=== PATIENT | male | born 1955 | race Caucasian/White ===

== ENCOUNTER 2021-05-17 20:49 | Inpatient (IN) | payer OTHER ==
[~2021-05-17] VITALS: Ht 182.9 cm; Wt 99.9 kg
[2021-05-18 00:35] LABS: Basophils # (auto) 0 10 ^3/uL (0-0.2); Basophils % (auto) 0.1 % (0.0-2.0); Eosinophils # (auto) 0 10 ^3/uL (0-0.8); Hematocrit 44.8 % (41.0-53.0); Hemoglobin 14.9 g/dL (13.5-17.5); Lymphocytes # (auto) 0.8 10 ^3/uL (0.4-5.4); Lymphocytes % (auto) 9.9 % (10.0-50.0); Mean Corpuscular Hemoglobin 31.2 pg (28.0-32.0); Mean Corpuscular Hgb Conc. 33.3 g/dL (32.0-36.0); Mean Corpuscular Volume 93.7 fL (80.0-100.0); Monocytes # (auto) 0.3 10 ^3/uL (0-1.3); Monocytes % (auto) 3.3 % (0.0-12.0); Neutrophils # (auto) 7.4 10 ^3/uL (1.6-8.6); Neutrophils % (auto) 86.7 % (37.0-80.0); Nucleated Red Blood Cells % 0.1 %; Red Blood Cells 4.78 10^6/uL (4.5-5.90); Red Cell Distribution Width 15.4 % (11.8-14.3); White Blood Cell 8.6 10^3/uL (4.4-10.8)
[2021-05-18 00:39] LABS: Albumin 2.8 g/dL (3.4-5.0); BUN/Creatinine Ratio 22.5; Calcium 8.2 mg/dL (8.5-10.1); Potassium 3.8 mmol/L (3.5-5.1)
[2021-05-18 00:41] LABS: Lactic Acid w/Reflex 2.6 mmol/L (0.4-2.0)
[2021-05-18 00:49] LABS: Bilirubin, Total 3.3 mg/dL (0.2-1.0); Total Protein 5.9 g/dL (6.4-8.2)
[2021-05-18] MEDS ORDERED: VANCOMYCIN HCL 1000 MG VL IV ONE (03:30)
[2021-05-18] MEDS ORDERED: PIPERACILLIN-TAZO 4.5GM 100 ML IV ONE (03:30)
[2021-05-18] MEDS ORDERED: ACETAMINOPHEN 325 MG TAB PO ONE (03:30)
[2021-05-18] MEDS ORDERED: VANCOMYCIN 1GM/250ML 250 ML IV ONE (04:12)
[2021-05-18] MEDS ORDERED: NITROGLYCERIN 0.4 MG SL TAB SL PRN (05:45)
[2021-05-18] MEDS ORDERED: ENOXAPARIN SOD 100 MG/1 ML SYRINGE SC ONE (05:45)
[2021-05-18] MEDS ORDERED: ONDANSETRON HCL 4 MG/2 ML VIAL IV PRN (05:45)
[2021-05-18] MEDS ORDERED: MORPHINE SULFATE INJECTION 2 MG/ML SYRG IV PRN (05:45)
[2021-05-18] MEDS ORDERED: ALBUMIN 25% 50 ML IV ONE (05:45)
[2021-05-18] MEDS ORDERED: ACETAMINOPHEN 500 MG TAB PO PRN (05:45)
[2021-05-18] MEDS ORDERED: TEMAZEPAM 15 MG CAP PO PRN (05:45)
[2021-05-18] MEDS: cefTRIAXone 1GM/50ML D5W 50 ML IV SCH (07:01)
[2021-05-18] MEDS: FUROSEMIDE 20 MG/2 ML VIAL IV SCH ×2 (07:01→18:35)
[2021-05-18 09:40] LABS: Partial Thromboplastin Time 60.5 sec (23.6-33.0)
[2021-05-18 10:08] LABS: INR 4.26 (0.9-1.15)
[2021-05-18] MEDS: ASPirin 81 mg TAB PO SCH (10:13)
[2021-05-18] MEDS: ASCORBIC ACID 1,000 MG TAB PO SCH (10:13)
[2021-05-18] MEDS: AZITHROMYCIN 500MG/ 250ML 250 ML IV SCH (10:13)
[2021-05-18] MEDS: DexAMETHasone SOD PHOS 10MG/1ML VIAL INJ IV SCH (10:13)
[2021-05-18] MEDS: CHOLECALCIFEROL (VITD3) 2,000 UNIT CAP/TAB PO SCH (10:13)
[2021-05-18 17:38] VITALS: BP 97/70
[2021-05-18 18:07] VITALS: BP 97/70
[2021-05-18] MEDS: ATORVASTATIN 20 MG TAB PO SCH (21:59)
[2021-05-18 22:00] VITALS: BP 112/75
[2021-05-18] MEDS ORDERED: ENOXAPARIN SOD 40 MG/0.4 ML SYRINGE SC SCH (22:00)
[2021-05-18] MEDS ORDERED: ENOXAPARIN SOD 80 MG/0.8ML SYRINGE SC SCH (22:00)
[2021-05-19 05:00] VITALS: BP 107/73
[2021-05-19] MEDS: FUROSEMIDE 20 MG/2 ML VIAL IV SCH ×2 (05:37→17:21)
[2021-05-19 06:41] LABS: Basophils # (auto) 0 10 ^3/uL (0-0.2); Basophils % (auto) 0.2 % (0.0-2.0); Eosinophils # (auto) 0 10 ^3/uL (0-0.8); Hematocrit 45.1 % (41.0-53.0); Hemoglobin 14.9 g/dL (13.5-17.5); Lymphocytes # (auto) 0.6 10 ^3/uL (0.4-5.4); Lymphocytes % (auto) 4.8 % (10.0-50.0); Mean Corpuscular Hemoglobin 30.7 pg (28.0-32.0); Mean Corpuscular Hgb Conc. 33.1 g/dL (32.0-36.0); Mean Corpuscular Volume 92.7 fL (80.0-100.0); Monocytes # (auto) 0.4 10 ^3/uL (0-1.3); Monocytes % (auto) 3.5 % (0.0-12.0); Neutrophils % (auto) 91.5 % (37.0-80.0); Red Blood Cells 4.86 10^6/uL (4.5-5.90); Red Cell Distribution Width 15.3 % (11.8-14.3); White Blood Cell 12.1 10^3/uL (4.4-10.8)
[2021-05-19 06:57] LABS: Albumin 2.6 g/dL (3.4-5.0); BUN/Creatinine Ratio 31.1; Potassium 4.4 mmol/L (3.5-5.1)
[2021-05-19 06:59] LABS: Bilirubin, Total 3.7 mg/dL (0.2-1.0); Total Protein 5.9 g/dL (6.4-8.2)
[2021-05-19] MEDS: cefTRIAXone 1GM/50ML D5W 50 ML IV SCH (08:51)
[2021-05-19 08:52] VITALS: BP 130/92
[2021-05-19] MEDS: ASPirin 81 mg TAB PO SCH (08:52)
[2021-05-19] MEDS: DexAMETHasone SOD PHOS 10MG/1ML VIAL INJ IV SCH (08:52)
[2021-05-19] MEDS: CHOLECALCIFEROL (VITD3) 2,000 UNIT CAP/TAB PO SCH (08:52)
[2021-05-19] MEDS: ASCORBIC ACID 1,000 MG TAB PO SCH (08:52)
[2021-05-19] MEDS: AZITHROMYCIN 500MG/ 250ML 250 ML IV SCH (09:43)
[2021-05-19 12:45] VITALS: BP 106/73
[2021-05-19] MEDS: SODIUM CHLORIDE 0.9% 1,000 ML IV SCH (13:15)
[2021-05-19 16:38] VITALS: BP 92/55
[2021-05-19 16:46] VITALS: BP 110/98
[2021-05-19] MEDS: Ensure HIGH Protein Chocolate 8oz Bottle PO SCH (17:21)
[2021-05-19] MEDS: ATORVASTATIN 20 MG TAB PO SCH (21:53)
[2021-05-19] MEDS: PANTOPRAZOLE 40 MG TAB PO SCH (21:54)
[2021-05-19 22:00] VITALS: BP 142/73
[2021-05-19] MEDS ORDERED: LORazepam 2MG/ML-1ML VIAL IV PRN (22:00)
[2021-05-19] MEDS ORDERED: LORazepam 2MG/ML-1ML VIAL IM ONE (22:30)
[2021-05-19] MEDS ORDERED: LORazepam 2MG/ML-1ML VIAL IV ONE (23:15)
[2021-05-20] MEDS: SODIUM CHLORIDE 0.9% 1,000 ML IV SCH (03:26)
[2021-05-20 05:00] VITALS: BP 109/83
[2021-05-20] MEDS: chlordiazePOXIDE HCL 25 MG CAP PO SCH ×5 (05:48→20:30)
[2021-05-20] MEDS: FUROSEMIDE 20 MG/2 ML VIAL IV SCH ×2 (05:48→17:54)
[2021-05-20 07:43] LABS: Basophils # (auto) 0 10 ^3/uL (0-0.2); Eosinophils # (auto) 0 10 ^3/uL (0-0.8); Eosinophils % (auto) 0.4 % (0.0-7.0); Hematocrit 50.3 % (41.0-53.0); Hemoglobin 15.9 g/dL (13.5-17.5); Lymphocytes # (auto) 0.6 10 ^3/uL (0.4-5.4); Lymphocytes % (auto) 5.7 % (10.0-50.0); Mean Corpuscular Hemoglobin 31.1 pg (28.0-32.0); Mean Corpuscular Hgb Conc. 31.6 g/dL (32.0-36.0); Mean Corpuscular Volume 98.5 fL (80.0-100.0); Monocytes # (auto) 0.4 10 ^3/uL (0-1.3); Monocytes % (auto) 3.4 % (0.0-12.0); Neutrophils # (auto) 9.7 10 ^3/uL (1.6-8.6); Neutrophils % (auto) 90.5 % (37.0-80.0); Nucleated Red Blood Cells % 0.7 %; Red Blood Cells 5.11 10^6/uL (4.5-5.90); Red Cell Distribution Width 15.3 % (11.8-14.3); White Blood Cell 10.7 10^3/uL (4.4-10.8)
[2021-05-20] MEDS: DexAMETHasone SOD PHOS 10MG/1ML VIAL INJ IV SCH (10:36)
[2021-05-20] MEDS: ASPirin 81 mg TAB PO SCH (10:36)
[2021-05-20] MEDS: Ensure HIGH Protein Chocolate 8oz Bottle PO SCH ×3 (10:36→17:54)
[2021-05-20] MEDS: cefTRIAXone 1GM/50ML D5W 50 ML IV SCH (10:36)
[2021-05-20] MEDS: ASCORBIC ACID 1,000 MG TAB PO SCH (10:37)
[2021-05-20] MEDS: CHOLECALCIFEROL (VITD3) 2,000 UNIT CAP/TAB PO SCH (10:37)
[2021-05-20 11:23] LABS: BUN/Creatinine Ratio 21.3
[2021-05-20] MEDS ORDERED: FOLIC ACID 1 MG, MULTIPLE VITAMIN 10 ML, MAGNESIUM SULF SDV 50% 8 MEQ, THIAMINE INJ 100... INJ SCH ×5 (12:00)
[2021-05-20 12:36] LABS: Potassium 5.7 mmol/L (3.5-5.1)
[2021-05-20 13:00] VITALS: BP 93/62
[2021-05-20] MEDS ORDERED: InsuLIN REG 1unit/0.01ml Soln (100units/ml) IV ONE (13:00)
[2021-05-20] MEDS ORDERED: ENOXAPARIN SOD 30 MG/0.3 ML SYRINGE SC ONE (13:00)
[2021-05-20] MEDS ORDERED: SODIUM ZIRCONIUM CYCL 10 GM PAK PO ONE (13:00)
[2021-05-20] MEDS ORDERED: DEXTROSE (50%) 50ML SYRG IV ONE (13:00)
[2021-05-20] MEDS ORDERED: ASPI-325 PO (13:46)
[2021-05-20] MEDS ORDERED: ALBU108A5 PO ×2 (13:46→13:50)
[2021-05-20] MEDS ORDERED: BENA10TA15 PO (13:46)
[2021-05-20] MEDS ORDERED: HEPARIN 1,000 UNITS/ml 1ML VIAL IV ONE (14:00)
[2021-05-20] MEDS ORDERED: HEPARIN SODIUM (PORCINE) 5000 UNITS/ML 1ML VIAL IV ONE (14:00)
[2021-05-20] MEDS ORDERED: DIGOXIN (250MCG/ML) 2 ML AMPULE IV ONE (14:00)
[2021-05-20] MEDS ORDERED: HEPARIN SOD 1000 UNIT/ML IV ONE (14:00)
[2021-05-20] MEDS ORDERED: HEPARIN DRIP/D5W 100UNITS/ML 250 ML IV SCH (14:00)
[2021-05-20 14:51] LABS: Albumin 2.8 g/dL (3.4-5.0); BUN/Creatinine Ratio 22.6
[2021-05-20 14:52] LABS: Hepatitis A Ab IgM Negative
[2021-05-20 14:55] LABS: Hepatitis B Core IgM Negative
[2021-05-20 15:00] LABS: Bilirubin, Total 5.7 mg/dL (0.2-1.0); Total Protein 6.4 g/dL (6.4-8.2)
[2021-05-20 15:04] LABS: Hepatitis C Antibody Negative (Negative)
[2021-05-20 15:30] LABS: Potassium 6.1 mmol/L (3.5-5.1)
[2021-05-20] MEDS ORDERED: LEVALBUTEROL HCL 1.25 MG/3 ML NEB NEB ONE (16:00)
[2021-05-20 16:16] LABS: INR 2.07 (0.9-1.15); Partial Thromboplastin Time 39.6 sec (23.6-33.0)
[2021-05-20 16:57] LABS: Basophils # (auto) 0 10 ^3/uL (0-0.2); Basophils % (auto) 0.2 % (0.0-2.0); Eosinophils # (auto) 0 10 ^3/uL (0-0.8); Hematocrit 46.8 % (41.0-53.0); Hemoglobin 15.4 g/dL (13.5-17.5); Lymphocytes # (auto) 0.5 10 ^3/uL (0.4-5.4); Lymphocytes % (auto) 4.5 % (10.0-50.0); Mean Corpuscular Hemoglobin 31.4 pg (28.0-32.0); Mean Corpuscular Hgb Conc. 32.9 g/dL (32.0-36.0); Mean Corpuscular Volume 95.4 fL (80.0-100.0); Monocytes # (auto) 0.5 10 ^3/uL (0-1.3); Monocytes % (auto) 4.6 % (0.0-12.0); Neutrophils # (auto) 9.7 10 ^3/uL (1.6-8.6); Neutrophils % (auto) 90.7 % (37.0-80.0); Nucleated Red Blood Cells % 0.4 %; Red Cell Distribution Width 15.4 % (11.8-14.3); White Blood Cell 10.7 10^3/uL (4.4-10.8)
[2021-05-20 17:00] VITALS: BP 108/66
[2021-05-20] MEDS ORDERED: SODIUM BICARBONATE 8.4 % INJ 50ML VIAL IV ONE (17:30)
[2021-05-20] MEDS ORDERED: CALCIUM CHL 100MG/ML 1,000 MG in D5W 5% 100 ML IV ONE (17:30)
[2021-05-20] MEDS ORDERED: SODIUM CHLORIDE 0.9% 2,000 ML IV ONE (17:45)
[2021-05-20] MEDS ORDERED: IPRATROPIUM BROM 0.5 MG/2.5ML INH SOL NEB SCH (18:00)
[2021-05-20] MEDS: LEVALBUTEROL HCL 1.25 MG/3 ML NEB NEB SCH (19:03)
[2021-05-20] MEDS ORDERED: BUMETANIDE 2.5mg/10ml (0.25 mg/ml) INJ IV ONE (19:45)
[2021-05-20] MEDS: CARVEDILOL 3.125 MG TAB PO SCH (20:28)
[2021-05-20] MEDS: PANTOPRAZOLE 40 MG TAB PO SCH (20:29)
[2021-05-20] MEDS: ATORVASTATIN 20 MG TAB PO SCH (20:29)
[2021-05-20 22:00] VITALS: BP 106/70
[2021-05-20 22:00] LABS: BUN/Creatinine Ratio 23.7; Calcium 7.5 mg/dL (8.5-10.1)
[2021-05-20 22:13] LABS: Potassium 5.8 mmol/L (3.5-5.1)
[2021-05-21] VITALS (50 sets, daily range): BP systolic 104–209; BP diastolic 60–180
[2021-05-21] MEDS: LEVALBUTEROL HCL 1.25 MG/3 ML NEB NEB SCH ×10 (01:23→22:57)
[2021-05-21] MEDS: chlordiazePOXIDE HCL 25 MG CAP PO SCH ×3 (05:48→18:00)
[2021-05-21] MEDS: FUROSEMIDE 20 MG/2 ML VIAL IV SCH ×2 (05:49→18:04)
[2021-05-21 07:12] LABS: BUN/Creatinine Ratio 23.6; Calcium 7.5 mg/dL (8.5-10.1)
[2021-05-21 07:21] LABS: Basophils # (auto) 0 10 ^3/uL (0-0.2); Basophils % (auto) 0.2 % (0.0-2.0); Eosinophils # (auto) 0 10 ^3/uL (0-0.8); Hemoglobin 15.9 g/dL (13.5-17.5); Lymphocytes # (auto) 0.5 10 ^3/uL (0.4-5.4); Mean Corpuscular Hgb Conc. 32.4 g/dL (32.0-36.0); Monocytes # (auto) 0.5 10 ^3/uL (0-1.3)
[2021-05-21 07:24] LABS: Hematocrit 48.9 % (41.0-53.0); Lymphocytes % (auto) 4.4 % (10.0-50.0); Mean Corpuscular Volume 95.5 fL (80.0-100.0); Monocytes % (auto) 3.8 % (0.0-12.0); Neutrophils % (auto) 91.6 % (37.0-80.0); Nucleated Red Blood Cells % 0.7 %; Red Blood Cells 5.12 10^6/uL (4.5-5.90); Red Cell Distribution Width 15.5 % (11.8-14.3)
[2021-05-21] MEDS: Ensure HIGH Protein Chocolate 8oz Bottle PO SCH ×2 (08:00→11:44)
[2021-05-21 08:12] LABS: Potassium 6.6 mmol/L (3.5-5.1)
[2021-05-21] MEDS ORDERED: PHYTONADIONE (VIT K)10 MG/ML 1ML VIAL SUBCUT ONE (09:00)
[2021-05-21] MEDS: cefTRIAXone 1GM/50ML D5W 50 ML IV SCH (09:00)
[2021-05-21] MEDS: SODIUM ZIRCONIUM CYCL 10 GM PAK PO SCH (10:00)
[2021-05-21] MEDS: CHOLECALCIFEROL (VITD3) 2,000 UNIT CAP/TAB PO SCH (10:00)
[2021-05-21] MEDS: ASCORBIC ACID 1,000 MG TAB PO SCH (10:00)
[2021-05-21] MEDS ORDERED: ENOXAPARIN SOD 30 MG/0.3 ML SYRINGE SC SCH (10:00)
[2021-05-21] MEDS: THIAMINE HCL 100 MG TAB PO SCH (10:00)
[2021-05-21] MEDS: ASPirin 81 mg TAB PO SCH (10:00)
[2021-05-21] MEDS: FOLIC ACID 1 MG TAB PO SCH (10:00)
[2021-05-21] MEDS: CARVEDILOL 3.125 MG TAB PO SCH ×2 (10:00→22:35)
[2021-05-21] MEDS: DexAMETHasone SOD PHOS 10MG/1ML VIAL INJ IV SCH (10:16)
[2021-05-21] MEDS ORDERED: ETOMIDATE (2MG/ML) 20ML VIAL IV ONE (10:34)
[2021-05-21] MEDS ORDERED: ROCURONIUM 10MG/ML 10ML VIAL IV ONE (10:34)
[2021-05-21] MEDS ORDERED: PROPOFOL 100 ML IV ONE (10:35)
[2021-05-21] MEDS ORDERED: fentaNYL Drip 2500mCg/250mlNS 250 ML IV ONE (10:35)
[2021-05-21] MEDS ORDERED: MIDAZOLAM DRIP 50 mg/50mL 50 ML IV ONE (10:45)
[2021-05-21] MEDS ORDERED: ALBUTEROL SULF 2.5 MG/0.5ML(0.5%) NEB SOLN NEB ONE (11:00)
[2021-05-21] MEDS ORDERED: DEXTROSE 50% SYRINGE 50 ML IV ONE (11:04)
[2021-05-21] MEDS ORDERED: ALBUTEROL SULF 2.5 MG/0.5ML(0.5%) NEB SOLN ONE (11:05)
[2021-05-21] MEDS ORDERED: PHENYLEPHRINE IV 250 ML IV ONE (11:23)
[2021-05-21] MEDS: PHENYLEPHRINE IV 250 ML IV SCH ×2 (11:45→20:05)
[2021-05-21] MEDS: fentaNYL Drip 2500mCg/250mlNS 250 ML IV SCH (11:45)
[2021-05-21] MEDS: NOREPINEPHRINE 8 MG/250ML KIT 250 ML IV SCH (11:45)
[2021-05-21] MEDS: PROPOFOL 100 ML IV SCH ×2 (11:45→22:31)
[2021-05-21] MEDS: MIDAZOLAM DRIP 50 mg/50mL 50 ML IV SCH (11:45)
[2021-05-21 19:52] LABS: Albumin 2.7 g/dL (3.4-5.0); Calcium 7.5 mg/dL (8.5-10.1)
[2021-05-21 19:57] LABS: Potassium 5.7 mmol/L (3.5-5.1)
[2021-05-21 20:09] LABS: BUN/Creatinine Ratio 19.5; Bilirubin, Total 8.5 mg/dL (0.2-1.0); Total Protein 5.9 g/dL (6.4-8.2)
[2021-05-21] MEDS: ATORVASTATIN 20 MG TAB PO SCH (22:35)
[2021-05-21] MEDS: PANTOPRAZOLE 40 MG TAB PO SCH (22:36)
[2021-05-22] VITALS (79 sets, daily range): BP systolic 92–153; BP diastolic 60–96
[2021-05-22 01:00] LABS: Albumin 2.3 g/dL (3.4-5.0); BUN/Creatinine Ratio 22.2; Calcium 6.4 mg/dL (8.5-10.1); Potassium 5.5 mmol/L (3.5-5.1)
[2021-05-22 01:08] LABS: Bilirubin, Total 8.1 mg/dL (0.2-1.0); Total Protein 4.9 g/dL (6.4-8.2)
[2021-05-22] MEDS: chlordiazePOXIDE HCL 25 MG CAP PO SCH ×3 (01:38→12:00)
[2021-05-22] MEDS: LEVALBUTEROL HCL 1.25 MG/3 ML NEB NEB SCH ×6 (02:08→22:13)
[2021-05-22] MEDS: PROPOFOL 100 ML IV SCH ×2 (04:10→20:29)
[2021-05-22] MEDS: PHENYLEPHRINE IV 250 ML IV SCH ×3 (04:25→20:57)
[2021-05-22 04:26] LABS: Potassium 5.3 mmol/L (3.5-5.1)
[2021-05-22 04:36] LABS: Basophils # (auto) 0 10 ^3/uL (0-0.2); Basophils % (auto) 0.3 % (0.0-2.0); Eosinophils # (auto) 0 10 ^3/uL (0-0.8); Eosinophils % (auto) 0.1 % (0.0-7.0); Hematocrit 50.9 % (41.0-53.0); Hemoglobin 16.8 g/dL (13.5-17.5); Lymphocytes # (auto) 0.4 10 ^3/uL (0.4-5.4); Lymphocytes % (auto) 2.8 % (10.0-50.0); Mean Corpuscular Hemoglobin 30.8 pg (28.0-32.0); Mean Corpuscular Hgb Conc. 33.1 g/dL (32.0-36.0); Monocytes # (auto) 0.3 10 ^3/uL (0-1.3); Monocytes % (auto) 1.9 % (0.0-12.0); Neutrophils # (auto) 13.9 10 ^3/uL (1.6-8.6); Neutrophils % (auto) 94.9 % (37.0-80.0); Nucleated Red Blood Cells % 0.5 %; Red Blood Cells 5.47 10^6/uL (4.5-5.90); Red Cell Distribution Width 15.7 % (11.8-14.3); White Blood Cell 14.7 10^3/uL (4.4-10.8)
[2021-05-22 04:37] LABS: Albumin 2.3 g/dL (3.4-5.0); BUN/Creatinine Ratio 22.9; Bilirubin, Total 7.4 mg/dL (0.2-1.0); CRP High Sensitivity 11.4 mg/dL (< 0.3); Calcium 6.6 mg/dL (8.5-10.1); Total Protein 4.8 g/dL (6.4-8.2)
[2021-05-22] MEDS: FUROSEMIDE 20 MG/2 ML VIAL IV SCH ×2 (06:07→18:12)
[2021-05-22] MEDS: NOREPINEPHRINE 8 MG/250ML KIT 250 ML IV SCH (06:23)
[2021-05-22] MEDS: cefTRIAXone 1GM/50ML D5W 50 ML IV SCH (09:00)
[2021-05-22] MEDS: SODIUM ZIRCONIUM CYCL 10 GM PAK PO SCH (10:00)
[2021-05-22] MEDS: CHOLECALCIFEROL (VITD3) 2,000 UNIT CAP/TAB PO SCH (10:00)
[2021-05-22] MEDS: ASPirin 81 mg TAB PO SCH (10:00)
[2021-05-22] MEDS: ASCORBIC ACID 1,000 MG TAB PO SCH (10:00)
[2021-05-22] MEDS: CARVEDILOL 3.125 MG TAB PO SCH ×2 (10:00→21:56)
[2021-05-22] MEDS: THIAMINE HCL 100 MG TAB PO SCH (10:00)
[2021-05-22] MEDS: FOLIC ACID 1 MG TAB PO SCH (10:00)
[2021-05-22] MEDS: DexAMETHasone SOD PHOS 10MG/1ML VIAL INJ IV SCH (10:00)
[2021-05-22] MEDS: fentaNYL Drip 2500mCg/250mlNS 250 ML IV SCH (11:22)
[2021-05-22] MEDS: MIDAZOLAM DRIP 50 mg/50mL 50 ML IV SCH (11:22)
[2021-05-22 14:37] LABS: Albumin 2.2 g/dL (3.4-5.0); Calcium 6.8 mg/dL (8.5-10.1); Potassium 5.4 mmol/L (3.5-5.1)
[2021-05-22 14:40] LABS: BUN/Creatinine Ratio 25.3; Bilirubin, Total 7.1 mg/dL (0.2-1.0); Total Protein 5.2 g/dL (6.4-8.2)
[2021-05-22 20:40] LABS: BUN/Creatinine Ratio 26.4; Calcium 6.9 mg/dL (8.5-10.1)
[2021-05-22 20:43] LABS: Potassium 5.7 mmol/L (3.5-5.1)
[2021-05-22] MEDS: SODIUM CHLORIDE 0.9% 1,000 ML IV SCH (21:55)
[2021-05-22] MEDS: PANTOPRAZOLE 40 MG TAB PO SCH (21:57)
[2021-05-22] MEDS: ATORVASTATIN 20 MG TAB PO SCH (21:57)
[2021-05-23] VITALS (74 sets, daily range): BP systolic 63–143; BP diastolic 41–99
[2021-05-23] MEDS: LEVALBUTEROL HCL 1.25 MG/3 ML NEB NEB SCH ×6 (02:08→23:00)
[2021-05-23 04:26] LABS: Basophils # (auto) 0 10 ^3/uL (0-0.2); Basophils % (auto) 0.1 % (0.0-2.0); Eosinophils # (auto) 0 10 ^3/uL (0-0.8); Eosinophils % (auto) 0.1 % (0.0-7.0); Hemoglobin 16.3 g/dL (13.5-17.5); Lymphocytes # (auto) 0.4 10 ^3/uL (0.4-5.4); Monocytes # (auto) 0.3 10 ^3/uL (0-1.3)
[2021-05-23 04:29] LABS: Hematocrit 48.7 % (41.0-53.0); Lymphocytes % (auto) 2.5 % (10.0-50.0); Mean Corpuscular Hemoglobin 30.8 pg (28.0-32.0); Mean Corpuscular Hgb Conc. 33.6 g/dL (32.0-36.0); Mean Corpuscular Volume 91.7 fL (80.0-100.0); Monocytes % (auto) 2.3 % (0.0-12.0); Neutrophils # (auto) 13.6 10 ^3/uL (1.6-8.6); Nucleated Red Blood Cells % 0.8 %; Red Blood Cells 5.31 10^6/uL (4.5-5.90); Red Cell Distribution Width 14.8 % (11.8-14.3); White Blood Cell 14.4 10^3/uL (4.4-10.8)
[2021-05-23 04:42] LABS: BUN/Creatinine Ratio 28.3; Calcium 6.6 mg/dL (8.5-10.1)
[2021-05-23] MEDS: PHENYLEPHRINE IV 250 ML IV SCH ×3 (05:25→22:05)
[2021-05-23] MEDS: FUROSEMIDE 20 MG/2 ML VIAL IV SCH (05:34)
[2021-05-23] MEDS: SODIUM CHLORIDE 0.9% 1,000 ML IV SCH ×2 (07:00→17:00)
[2021-05-23] MEDS: ASPirin 81 mg TAB PO SCH (09:45)
[2021-05-23] MEDS: cefTRIAXone 1GM/50ML D5W 50 ML IV SCH (09:45)
[2021-05-23] MEDS: FOLIC ACID 1 MG TAB PO SCH (09:45)
[2021-05-23] MEDS: DexAMETHasone SOD PHOS 10MG/1ML VIAL INJ IV SCH (09:45)
[2021-05-23] MEDS: CARVEDILOL 3.125 MG TAB PO SCH ×2 (09:46→22:00)
[2021-05-23] MEDS: THIAMINE HCL 100 MG TAB PO SCH (09:46)
[2021-05-23] MEDS: ASCORBIC ACID 1,000 MG TAB PO SCH (09:47)
[2021-05-23] MEDS: CHOLECALCIFEROL (VITD3) 2,000 UNIT CAP/TAB PO SCH (09:47)
[2021-05-23] MEDS: NOREPINEPHRINE 8 MG/250ML KIT 250 ML IV SCH ×3 (11:45→23:15)
[2021-05-23] MEDS: fentaNYL Drip 2500mCg/250mlNS 250 ML IV SCH (11:45)
[2021-05-23] MEDS: MIDAZOLAM DRIP 50 mg/50mL 50 ML IV SCH (11:45)
[2021-05-23 19:10] LABS: BUN/Creatinine Ratio 32.5; Calcium 7.2 mg/dL (8.5-10.1)
[2021-05-23 19:11] LABS: Bilirubin, Direct 4.1 mg/dL (0-0.2)
[2021-05-23 19:14] LABS: Bilirubin, Total 5.5 mg/dL (0.2-1.0)
[2021-05-23 19:23] LABS: Potassium 5.7 mmol/L (3.5-5.1)
[2021-05-23] MEDS: PANTOPRAZOLE 40 MG TAB PO SCH (22:00)
[2021-05-23] MEDS: ATORVASTATIN 20 MG TAB PO SCH (22:00)
[2021-05-24] VITALS (79 sets, daily range): BP systolic 84–149; BP diastolic 38–129
[2021-05-24] MEDS: PROPOFOL 100 ML IV SCH (00:49)
[2021-05-24] MEDS: LEVALBUTEROL HCL 1.25 MG/3 ML NEB NEB SCH ×6 (02:42→22:14)
[2021-05-24] MEDS: SODIUM CHLORIDE 0.9% 1,000 ML IV SCH ×3 (03:00→23:00)
[2021-05-24 04:28] LABS: Basophils # (auto) 0.1 10 ^3/uL (0-0.2); Basophils % (auto) 0.4 % (0.0-2.0); Eosinophils # (auto) 0 10 ^3/uL (0-0.8); Hemoglobin 15.8 g/dL (13.5-17.5); Lymphocytes # (auto) 0.6 10 ^3/uL (0.4-5.4); Mean Corpuscular Hemoglobin 30.2 pg (28.0-32.0); Mean Corpuscular Volume 91.3 fL (80.0-100.0); Monocytes # (auto) 0.6 10 ^3/uL (0-1.3); Neutrophils # (auto) 12.9 10 ^3/uL (1.6-8.6); Neutrophils % (auto) 91.6 % (37.0-80.0); Nucleated Red Blood Cells % 0.4 %; Red Blood Cells 5.25 10^6/uL (4.5-5.90); Red Cell Distribution Width 14.9 % (11.8-14.3); White Blood Cell 14.1 10^3/uL (4.4-10.8)
[2021-05-24 04:39] LABS: BUN/Creatinine Ratio 34.3; Potassium 4.7 mmol/L (3.5-5.1)
[2021-05-24] MEDS: PHENYLEPHRINE IV 250 ML IV SCH ×3 (06:23→23:05)
[2021-05-24] MEDS: cefTRIAXone 1GM/50ML D5W 50 ML IV SCH (09:12)
[2021-05-24] MEDS: CARVEDILOL 3.125 MG TAB PO SCH ×2 (10:00→21:36)
[2021-05-24] MEDS: THIAMINE HCL 100 MG TAB PO SCH (10:30)
[2021-05-24] MEDS: ASCORBIC ACID 1,000 MG TAB PO SCH (10:30)
[2021-05-24] MEDS: FOLIC ACID 1 MG TAB PO SCH (10:30)
[2021-05-24] MEDS: ASPirin 81 mg TAB PO SCH (10:30)
[2021-05-24] MEDS: CHOLECALCIFEROL (VITD3) 2,000 UNIT CAP/TAB PO SCH (10:31)
[2021-05-24] MEDS: DexAMETHasone SOD PHOS 10MG/1ML VIAL INJ IV SCH (10:32)
[2021-05-24] MEDS ORDERED: HEPARIN DRIP/D5W 100UNITS/ML 250 ML IV SCH (11:15)
[2021-05-24] MEDS ORDERED: DIGOXIN (250MCG/ML) 2 ML AMPULE IV ONE (11:30)
[2021-05-24] MEDS: fentaNYL Drip 2500mCg/250mlNS 250 ML IV SCH (11:45)
[2021-05-24] MEDS: MIDAZOLAM DRIP 50 mg/50mL 50 ML IV SCH (11:45)
[2021-05-24 12:51] LABS: INR 1.26 (0.9-1.15); Partial Thromboplastin Time 33.9 sec (23.6-33.0)
[2021-05-24 12:53] LABS: Urine Bacteria NONE SEEN /hpf (None Seen); Urine Blood 2+ /uL (Negative); Urine Mucus FEW (None Seen); Urine Specific Gravity 1.018 (1.001-1.035); Urine WBC 16 /hpf (0 - 3)
[2021-05-24 12:54] LABS: Protein, Urine 63.5 mg/dL (0.0-11.9)
[2021-05-24] MEDS: NOREPINEPHRINE 8 MG/250ML KIT 250 ML IV SCH (19:20)
[2021-05-24] MEDS: PANTOPRAZOLE 40 MG TAB PO SCH (21:36)
[2021-05-24] MEDS: ATORVASTATIN 20 MG TAB PO SCH (21:36)
[2021-05-25] VITALS (83 sets, daily range): BP systolic 92–167; BP diastolic 40–135
[2021-05-25] MEDS: fentaNYL Drip 2500mCg/250mlNS 250 ML IV SCH (00:47)
[2021-05-25] MEDS: LEVALBUTEROL HCL 1.25 MG/3 ML NEB NEB SCH ×6 (02:10→22:36)
[2021-05-25 04:46] LABS: Basophils # (auto) 0.1 10 ^3/uL (0-0.2); Basophils % (auto) 0.5 % (0.0-2.0); Eosinophils # (auto) 0 10 ^3/uL (0-0.8); Hematocrit 44.6 % (41.0-53.0); Hemoglobin 14.7 g/dL (13.5-17.5); Lymphocytes # (auto) 0.3 10 ^3/uL (0.4-5.4); Lymphocytes % (auto) 2.4 % (10.0-50.0); Mean Corpuscular Hgb Conc. 32.8 g/dL (32.0-36.0); Mean Corpuscular Volume 91.5 fL (80.0-100.0); Monocytes # (auto) 0.5 10 ^3/uL (0-1.3); Monocytes % (auto) 3.5 % (0.0-12.0); Neutrophils # (auto) 12.6 10 ^3/uL (1.6-8.6); Neutrophils % (auto) 93.6 % (37.0-80.0); Nucleated Red Blood Cells % 0.2 %; Red Blood Cells 4.88 10^6/uL (4.5-5.90); Red Cell Distribution Width 15.1 % (11.8-14.3); White Blood Cell 13.5 10^3/uL (4.4-10.8)
[2021-05-25 05:07] LABS: Potassium 4.4 mmol/L (3.5-5.1)
[2021-05-25 05:16] LABS: BUN/Creatinine Ratio 40.3; Calcium 7.2 mg/dL (8.5-10.1)
[2021-05-25] MEDS: PHENYLEPHRINE IV 250 ML IV SCH ×2 (06:52→15:45)
[2021-05-25] MEDS: cefTRIAXone 1GM/50ML D5W 50 ML IV SCH (09:00)
[2021-05-25] MEDS: SODIUM CHLORIDE 0.9% 1,000 ML IV SCH ×2 (09:00→14:00)
[2021-05-25] MEDS: ASCORBIC ACID 1,000 MG TAB PO SCH (10:00)
[2021-05-25] MEDS: ASPirin 81 mg TAB PO SCH (10:00)
[2021-05-25] MEDS: THIAMINE HCL 100 MG TAB PO SCH (10:00)
[2021-05-25] MEDS: CARVEDILOL 3.125 MG TAB PO SCH ×3 (10:00→22:38)
[2021-05-25] MEDS: FOLIC ACID 1 MG TAB PO SCH (10:00)
[2021-05-25] MEDS: CHOLECALCIFEROL (VITD3) 2,000 UNIT CAP/TAB PO SCH (10:00)
[2021-05-25] MEDS: DexAMETHasone SOD PHOS 10MG/1ML VIAL INJ IV SCH (10:00)
[2021-05-25] MEDS: DOPamine 1600MCG/ML D5W 250 ML IV SCH (11:37)
[2021-05-25] MEDS: PROPOFOL 100 ML IV SCH ×2 (11:45→16:30)
[2021-05-25] MEDS: MIDAZOLAM DRIP 50 mg/50mL 50 ML IV SCH (13:12)
[2021-05-25] MEDS: PANTOPRAZOLE 40 MG TAB PO SCH (21:38)
[2021-05-25] MEDS: ATORVASTATIN 20 MG TAB PO SCH (21:38)
[2021-05-25] MEDS ORDERED: AMIODARONE 450mg/250ml AE 250 ML IV ONE (22:22)
[2021-05-26] VITALS (96 sets, daily range): BP systolic 79–123; BP diastolic 52–86
[2021-05-26] MEDS: PHENYLEPHRINE IV 250 ML IV SCH ×3 (00:05→16:45)
[2021-05-26] MEDS: SODIUM CHLORIDE 0.9% 1,000 ML IV SCH ×3 (00:30→19:00)
[2021-05-26] MEDS: LEVALBUTEROL HCL 1.25 MG/3 ML NEB NEB SCH ×3 (00:42→22:27)
[2021-05-26] MEDS ORDERED: AMIODARONE 450mg/250ml AE 250 ML IV ONE (02:20)
[2021-05-26 04:46] LABS: Basophils # (auto) 0 10 ^3/uL (0-0.2); Eosinophils # (auto) 0 10 ^3/uL (0-0.8); Lymphocytes # (auto) 0.3 10 ^3/uL (0.4-5.4); Mean Corpuscular Hgb Conc. 32.3 g/dL (32.0-36.0); Red Cell Distribution Width 15.5 % (11.8-14.3)
[2021-05-26 04:49] LABS: Basophils % (auto) 0.3 % (0.0-2.0); Hematocrit 46.1 % (41.0-53.0); Hemoglobin 14.9 g/dL (13.5-17.5); Mean Corpuscular Hemoglobin 29.8 pg (28.0-32.0); Mean Corpuscular Volume 92.2 fL (80.0-100.0); Monocytes # (auto) 0.6 10 ^3/uL (0-1.3); Monocytes % (auto) 4.1 % (0.0-12.0); Neutrophils # (auto) 13.3 10 ^3/uL (1.6-8.6); Neutrophils % (auto) 93.6 % (37.0-80.0); Nucleated Red Blood Cells % 0.1 %; White Blood Cell 14.2 10^3/uL (4.4-10.8)
[2021-05-26 05:04] LABS: Potassium 4.7 mmol/L (3.5-5.1)
[2021-05-26 05:10] LABS: BUN/Creatinine Ratio 48.9; Calcium 8.1 mg/dL (8.5-10.1)
[2021-05-26] MEDS: cefTRIAXone 1GM/50ML D5W 50 ML IV SCH (09:00)
[2021-05-26] MEDS: DexAMETHasone SOD PHOS 10MG/1ML VIAL INJ IV SCH (10:00)
[2021-05-26] MEDS: THIAMINE HCL 100 MG TAB PO SCH (10:00)
[2021-05-26] MEDS: FOLIC ACID 1 MG TAB PO SCH (10:00)
[2021-05-26] MEDS: CHOLECALCIFEROL (VITD3) 2,000 UNIT CAP/TAB PO SCH (10:00)
[2021-05-26] MEDS: ASPirin 81 mg TAB PO SCH (10:00)
[2021-05-26] MEDS: ASCORBIC ACID 1,000 MG TAB PO SCH (10:00)
[2021-05-26] MEDS: MIDAZOLAM DRIP 50 mg/50mL 50 ML IV SCH (11:45)
[2021-05-26] MEDS: fentaNYL Drip 2500mCg/250mlNS 250 ML IV SCH (11:45)
[2021-05-26] MEDS: NOREPINEPHRINE 8 MG/250ML KIT 250 ML IV SCH (11:52)
[2021-05-26] MEDS ORDERED: MORPHINE SULFATE INJECTION 2 MG/ML SYRG IV PRN (17:00)
[2021-05-26] MEDS: DOPamine 1600MCG/ML D5W 250 ML IV SCH (18:59)
[2021-05-26] MEDS: PROPOFOL 100 ML IV SCH (20:30)
[2021-05-26] MEDS: ATORVASTATIN 20 MG TAB PO SCH (22:00)
[2021-05-26] MEDS: CARVEDILOL 3.125 MG TAB PO SCH (22:00)
[2021-05-26] MEDS: PANTOPRAZOLE 40 MG TAB PO SCH (22:00)
[2021-05-27] VITALS (98 sets, daily range): BP systolic 84–134; BP diastolic 47–83
[2021-05-27] MEDS: Nepro With Carb Steady 1 Liter Bottle GT SCH (01:58)
[2021-05-27] MEDS: PROPOFOL 100 ML IV SCH ×3 (01:59→15:23)
[2021-05-27] MEDS: LEVALBUTEROL HCL 1.25 MG/3 ML NEB NEB SCH ×3 (02:23→22:25)
[2021-05-27 04:39] LABS: Basophils # (auto) 0 10 ^3/uL (0-0.2); Eosinophils # (auto) 0 10 ^3/uL (0-0.8); Hemoglobin 14.8 g/dL (13.5-17.5); Mean Corpuscular Volume 92.9 fL (80.0-100.0); Nucleated Red Blood Cells % 0.1 %; Red Blood Cells 4.71 10^6/uL (4.5-5.90)
[2021-05-27 04:42] LABS: Basophils % (auto) 0.3 % (0.0-2.0); Hematocrit 43.8 % (41.0-53.0); Lymphocytes # (auto) 0.3 10 ^3/uL (0.4-5.4); Lymphocytes % (auto) 1.6 % (10.0-50.0); Mean Corpuscular Hemoglobin 31.3 pg (28.0-32.0); Mean Corpuscular Hgb Conc. 33.7 g/dL (32.0-36.0); Monocytes # (auto) 0.7 10 ^3/uL (0-1.3); Monocytes % (auto) 4.4 % (0.0-12.0); Neutrophils # (auto) 15.3 10 ^3/uL (1.6-8.6); Neutrophils % (auto) 93.7 % (37.0-80.0); Red Cell Distribution Width 15.6 % (11.8-14.3); White Blood Cell 16.3 10^3/uL (4.4-10.8)
[2021-05-27 04:52] LABS: INR 1.66 (0.9-1.15); Partial Thromboplastin Time 34.7 sec (23.6-33.0)
[2021-05-27] MEDS: SODIUM CHLORIDE 0.9% 1,000 ML IV SCH ×2 (05:00→22:00)
[2021-05-27] MEDS: CHOLECALCIFEROL (VITD3) 2,000 UNIT CAP/TAB PO SCH (08:56)
[2021-05-27] MEDS: DexAMETHasone SOD PHOS 10MG/1ML VIAL INJ IV SCH (08:56)
[2021-05-27] MEDS: ASPirin 81 mg TAB PO SCH (08:57)
[2021-05-27] MEDS: CARVEDILOL 3.125 MG TAB PO SCH ×2 (08:58→21:57)
[2021-05-27] MEDS: ASCORBIC ACID 1,000 MG TAB PO SCH (08:58)
[2021-05-27] MEDS: THIAMINE HCL 100 MG TAB PO SCH (08:58)
[2021-05-27] MEDS: cefTRIAXone 1GM/50ML D5W 50 ML IV SCH (08:59)
[2021-05-27] MEDS ORDERED: LEVALBUTEROL HCL 1.25 MG/3 ML NEB ONE (13:58)
[2021-05-27] MEDS: fentaNYL Drip 2500mCg/250mlNS 250 ML IV SCH ×2 (14:00→23:00)
[2021-05-27] MEDS: FOLIC ACID 1 MG TAB PO SCH (15:18)
[2021-05-27] MEDS: PHENYLEPHRINE IV 250 ML IV SCH ×3 (15:23→17:45)
[2021-05-27] MEDS: MIDAZOLAM DRIP 50 mg/50mL 50 ML IV SCH (15:26)
[2021-05-27] MEDS: DOPamine 1600MCG/ML D5W 250 ML IV SCH (15:30)
[2021-05-27] MEDS: NOREPINEPHRINE 8 MG/250ML KIT 250 ML IV SCH (15:32)
[2021-05-27] MEDS: PANTOPRAZOLE 40 MG TAB PO SCH (21:57)
[2021-05-27] MEDS: ATORVASTATIN 20 MG TAB PO SCH (21:57)
[2021-05-27] MEDS: ACETYLCYSTEINE 10 %(100MG/ML) SOL 4ML NEB SCH (22:25)
[2021-05-28] VITALS (94 sets, daily range): BP systolic 79–128; BP diastolic 50–84
[2021-05-28] MEDS: SODIUM CHLORIDE 0.9% 1,000 ML IV SCH ×2 (01:00→13:30)
[2021-05-28] MEDS: PHENYLEPHRINE IV 250 ML IV SCH ×3 (02:05→18:45)
[2021-05-28] MEDS: PROPOFOL 100 ML IV SCH ×2 (03:01→20:00)
[2021-05-28] MEDS: LEVALBUTEROL HCL 1.25 MG/3 ML NEB NEB SCH ×3 (06:55→19:25)
[2021-05-28] MEDS: ACETYLCYSTEINE 10 %(100MG/ML) SOL 4ML NEB SCH ×3 (06:55→19:25)
[2021-05-28 08:37] LABS: Basophils # (auto) 0 10 ^3/uL (0-0.2); Eosinophils # (auto) 0 10 ^3/uL (0-0.8); Eosinophils % (auto) 0.1 % (0.0-7.0); Hemoglobin 13.8 g/dL (13.5-17.5); Monocytes # (auto) 0.9 10 ^3/uL (0-1.3); Red Cell Distribution Width 15.7 % (11.8-14.3); White Blood Cell 21.1 10^3/uL (4.4-10.8)
[2021-05-28 08:39] LABS: Hematocrit 44.1 % (41.0-53.0); Lymphocytes # (auto) 0.5 10 ^3/uL (0.4-5.4); Lymphocytes % (auto) 2.4 % (10.0-50.0); Mean Corpuscular Hemoglobin 29.4 pg (28.0-32.0); Mean Corpuscular Hgb Conc. 31.2 g/dL (32.0-36.0); Mean Corpuscular Volume 94.3 fL (80.0-100.0); Monocytes % (auto) 4.2 % (0.0-12.0); Neutrophils # (auto) 19.7 10 ^3/uL (1.6-8.6); Neutrophils % (auto) 93.3 % (37.0-80.0); Red Blood Cells 4.67 10^6/uL (4.5-5.90)
[2021-05-28 08:42] LABS: INR 1.21 (0.9-1.15)
[2021-05-28 08:52] LABS: Albumin 1.6 g/dL (3.4-5.0); Calcium 7.6 mg/dL (8.5-10.1); Magnesium 2.2 mg/dL (1.6-2.6); Potassium 4.4 mmol/L (3.5-5.1)
[2021-05-28 08:55] LABS: BUN/Creatinine Ratio 45.3; Bilirubin, Total 2.9 mg/dL (0.2-1.0); Phosphorus 3.1 mg/dL (2.5-4.90); Total Protein 4.9 g/dL (6.4-8.2)
[2021-05-28] MEDS: cefTRIAXone 1GM/50ML D5W 50 ML IV SCH (09:05)
[2021-05-28] MEDS: CARVEDILOL 3.125 MG TAB PO SCH ×2 (10:00→22:00)
[2021-05-28] MEDS: NOREPINEPHRINE 8 MG/250ML KIT 250 ML IV SCH (10:27)
[2021-05-28] MEDS: CHOLECALCIFEROL (VITD3) 2,000 UNIT CAP/TAB PO SCH (10:28)
[2021-05-28] MEDS: ASCORBIC ACID 1,000 MG TAB PO SCH (10:28)
[2021-05-28] MEDS: DexAMETHasone SOD PHOS 10MG/1ML VIAL INJ IV SCH (10:29)
[2021-05-28] MEDS: THIAMINE HCL 100 MG TAB PO SCH (10:29)
[2021-05-28] MEDS: ASPirin 81 mg TAB PO SCH (10:29)
[2021-05-28] MEDS: FOLIC ACID 1 MG TAB PO SCH (10:43)
[2021-05-28] MEDS: DOPamine 1600MCG/ML D5W 250 ML IV SCH ×2 (11:00→23:30)
[2021-05-28] MEDS: MIDAZOLAM DRIP 50 mg/50mL 50 ML IV SCH (11:45)
[2021-05-28] MEDS: PANTOPRAZOLE 40 MG TAB PO SCH (22:00)
[2021-05-28] MEDS: ATORVASTATIN 20 MG TAB PO SCH (22:00)
[2021-05-28] MEDS: Nepro With Carb Steady 1 Liter Bottle GT SCH (23:39)
[2021-05-29] VITALS (77 sets, daily range): BP systolic 81–115; BP diastolic 52–77
[2021-05-29] MEDS: PHENYLEPHRINE IV 250 ML IV SCH ×3 (03:05→19:45)
[2021-05-29 04:53] LABS: Basophils # (auto) 0 10 ^3/uL (0-0.2); Eosinophils # (auto) 0 10 ^3/uL (0-0.8); Hematocrit 40.7 % (41.0-53.0); Hemoglobin 13.4 g/dL (13.5-17.5); Lymphocytes # (auto) 0.4 10 ^3/uL (0.4-5.4); Lymphocytes % (auto) 1.9 % (10.0-50.0); Mean Corpuscular Hemoglobin 31.1 pg (28.0-32.0); Mean Corpuscular Volume 94.3 fL (80.0-100.0); Monocytes # (auto) 0.8 10 ^3/uL (0-1.3); Monocytes % (auto) 3.6 % (0.0-12.0); Neutrophils # (auto) 20.3 10 ^3/uL (1.6-8.6); Neutrophils % (auto) 94.5 % (37.0-80.0); Nucleated Red Blood Cells % 0.1 %; Red Blood Cells 4.32 10^6/uL (4.5-5.90); Red Cell Distribution Width 15.6 % (11.8-14.3); White Blood Cell 21.5 10^3/uL (4.4-10.8)
[2021-05-29] MEDS: PROPOFOL 100 ML IV SCH ×2 (05:49→20:38)
[2021-05-29] MEDS: fentaNYL Drip 2500mCg/250mlNS 250 ML IV SCH (06:29)
[2021-05-29] MEDS: ACETYLCYSTEINE 10 %(100MG/ML) SOL 4ML NEB SCH ×3 (06:56→22:11)
[2021-05-29] MEDS: LEVALBUTEROL HCL 1.25 MG/3 ML NEB NEB SCH ×3 (06:56→22:11)
[2021-05-29] MEDS: DexAMETHasone SOD PHOS 10MG/1ML VIAL INJ IV SCH (08:52)
[2021-05-29] MEDS: cefTRIAXone 1GM/50ML D5W 50 ML IV SCH (08:52)
[2021-05-29] MEDS: THIAMINE HCL 100 MG TAB PO SCH (08:53)
[2021-05-29] MEDS: FOLIC ACID 1 MG TAB PO SCH (08:53)
[2021-05-29] MEDS: CARVEDILOL 3.125 MG TAB PO SCH ×2 (08:53→20:37)
[2021-05-29] MEDS: ASPirin 81 mg TAB PO SCH (08:53)
[2021-05-29] MEDS: CHOLECALCIFEROL (VITD3) 2,000 UNIT CAP/TAB PO SCH (08:54)
[2021-05-29] MEDS: ASCORBIC ACID 1,000 MG TAB PO SCH (08:54)
[2021-05-29] MEDS: NOREPINEPHRINE 8 MG/250ML KIT 250 ML IV SCH ×2 (11:45→20:38)
[2021-05-29] MEDS: MIDAZOLAM DRIP 50 mg/50mL 50 ML IV SCH (11:45)
[2021-05-29] MEDS: ATORVASTATIN 20 MG TAB PO SCH (20:38)
[2021-05-29] MEDS: PANTOPRAZOLE 40 MG TAB PO SCH (20:38)
[2021-05-29] MEDS: SODIUM CHLORIDE 0.9% 1,000 ML IV SCH ×2 (20:38)
[2021-05-30] VITALS (64 sets, daily range): BP systolic 58–110; BP diastolic 33–77
[2021-05-30] MEDS: PHENYLEPHRINE IV 250 ML IV SCH (04:05)
[2021-05-30] MEDS: fentaNYL Drip 2500mCg/250mlNS 250 ML IV SCH (05:00)
[2021-05-30] MEDS: DOPamine 1600MCG/ML D5W 250 ML IV SCH (05:00)
[2021-05-30] MEDS: PROPOFOL 100 ML IV SCH (05:27)
[2021-05-30] MEDS: LEVALBUTEROL HCL 1.25 MG/3 ML NEB NEB SCH (07:16)
[2021-05-30] MEDS: ACETYLCYSTEINE 10 %(100MG/ML) SOL 4ML NEB SCH (07:16)
[2021-05-30] MEDS: cefTRIAXone 1GM/50ML D5W 50 ML IV SCH (09:00)
[2021-05-30] MEDS: SODIUM CHLORIDE 0.9% 1,000 ML IV SCH (09:50)
[2021-05-30] MEDS: CARVEDILOL 3.125 MG TAB PO SCH (09:51)
[2021-05-30] MEDS: CHOLECALCIFEROL (VITD3) 2,000 UNIT CAP/TAB PO SCH (09:51)
[2021-05-30] MEDS: DexAMETHasone SOD PHOS 10MG/1ML VIAL INJ IV SCH (09:51)
[2021-05-30] MEDS: ASPirin 81 mg TAB PO SCH (09:51)
[2021-05-30] MEDS: ASCORBIC ACID 1,000 MG TAB PO SCH (09:51)
[2021-05-30] MEDS: FOLIC ACID 1 MG TAB PO SCH (09:52)
[2021-05-30] MEDS: THIAMINE HCL 100 MG TAB PO SCH (09:52)
[2021-05-30] MEDS ORDERED: MORPHINE SULFATE INJECTION 2 MG/ML SYRG IV PRN (12:30)
[2021-05-30] MEDS ORDERED: LORazepam 2MG/ML-1ML VIAL IV PRN (12:30)
== END 2021-05-30 17:51 | DRG 870 ==
LOC: EDBD 20:49 → ER 20:53 → TELE 05-18 05:44 → TELE-EAST 05-18 17:21 → TELE-E-ADS 05-18 20:40 → ICU WEST 05-21 10:30
PROVIDERS: ADMIT Nurse Practitioner; ATTEND Internal Medicine
PROC: 05H933Z Insertion of Infusion Device into Right Brachial Vein, Percutaneous Approach (ICD-10-PCS; 2021-05-20)
PROC: B54MZZA Ultrasonography of Right Upper Extremity Veins, Guidance (ICD-10-PCS; 2021-05-20)
PROC: 5A1955Z Respiratory Ventilation, Greater than 96 Consecutive Hours (ICD-10-PCS; principal; 2021-05-21)
PROC: 0BH17EZ Insertion of Endotracheal Airway into Trachea, Via Natural or Artificial Opening (ICD-10-PCS; 2021-05-21)
PROC: 02HV33Z Insertion of Infusion Device into Superior Vena Cava, Percutaneous Approach (ICD-10-PCS; 2021-05-21)
PROC: B548ZZA Ultrasonography of Superior Vena Cava, Guidance (ICD-10-PCS; 2021-05-21)
PROC: 03HY32Z Insertion of Monitoring Device into Upper Artery, Percutaneous Approach (ICD-10-PCS; 2021-05-21)
PROC: 4A133B1 Monitoring of Arterial Pressure, Peripheral, Percutaneous Approach (ICD-10-PCS; 2021-05-21)
PROC: 4A133J1 Monitoring of Arterial Pulse, Peripheral, Percutaneous Approach (ICD-10-PCS; 2021-05-21)
PROC: 5A1D70Z Performance of Urinary Filtration, Intermittent, Less than 6 Hours Per Day (ICD-10-PCS; 2021-05-21)
DX: A41.89 Other specified sepsis (principal); U07.1 COVID-19; J12.82 Pneumonia due to coronavirus disease 2019; I21.4 Non-ST elevation (NSTEMI) myocardial infarction; J96.01 Acute respiratory failure with hypoxia; G92.8 Other toxic encephalopathy; G93.1 Anoxic brain damage, not elsewhere classified; I48.92 Unspecified atrial flutter; J98.11 Atelectasis; Z51.5 Encounter for palliative care; Z66 Do not resuscitate; I50.9 Heart failure, unspecified; B95.61 Methicillin susceptible Staphylococcus aureus infection as the cause of diseases classified elsewhere; D69.59 Other secondary thrombocytopenia; E66.9 Obesity, unspecified; E87.5 Hyperkalemia; R79.89 Other specified abnormal findings of blood chemistry; E88.09 Other disorders of plasma-protein metabolism, not elsewhere classified; K72.90 Hepatic failure, unspecified without coma; I70.223 Atherosclerosis of native arteries of extremities with rest pain, bilateral legs; F41.9 Anxiety disorder, unspecified; B95.5 Unspecified streptococcus as the cause of diseases classified elsewhere; I48.91 Unspecified atrial fibrillation; Z68.30 Body mass index [BMI] 30.0-30.9, adult; Z82.49 Family history of ischemic heart disease and other diseases of the circulatory system; Z99.2 Dependence on renal dialysis; Z88.8 Allergy status to other drugs, medicaments and biological substances
CPT/HCPCS: 36415; 36600; 70450; 71045; 74176; 76705; 76775; 80048; 80053; 80074; 80076; 81001; 82140; 82306; 82570; 82728; 82805; 82962; 83605; 83615; 83735; 83880; 83935; 83970; 84100; 84156; 84300; 84484; 85025; 85379; 85610; 85730; 86141; 86850; 86900; 86901; 87040; 87070; 87077; 87081; 87086; 87186; 87205; 87426; 90935; 93005; 93306; 93925; 93970; 94002; 94003; 94640; 94760; 95819; 96365; 96367; 96368; 96372; 96375; 99291; G0378; J0696; J1100; J1815; J2250; J2543; J2704; J3430; J7042; J7060